=== PATIENT | male | born 1985 | race Caucasian/White ===

== ENCOUNTER 2023-08-13 21:03 | Observation (INO) ==
[2023-08-13] MEDS ORDERED: DECADRON IM ONE (21:11)
[2023-08-13] MEDS ORDERED: EPINEPHRINE 1 MG/ML AMP IM STA (21:11)
[2023-08-13] MEDS ORDERED: DILAUDID 1 MG/ML SYRINGE IM STA (21:20)
[2023-08-13] MEDS ORDERED: BENADRYL IM STA (21:20)
[2023-08-13] MEDS ORDERED: CLARITIN PO STA (21:23)
--- NOTE | 2023-08-13 21:27 | ED.PDOC ---
General ED Provider: Dr. TERRIE SKY Chief Complaint: Rash Stated Complaint: Patient is a a 38 year old male who comes to the ER with a one week history of Splash/chemical exposure Machine cleaning solution he does not know the name) on the lower part of his body that has been getting worse. He states that he was taken away from the chemical at work but did not seek care. Today the swelling got worse and has been taking Ibuprofen for the pain. Time Seen by Provider: 08/13/23 21:20 Information Source: Patient Nursing and Triage Documentation Reviewed and Agree: Yes Skin Complaint Exam Burn Injury Complaint/Exam Onset/Duration: 1 week ago Length Of Exposure: hours to days Initial Severity: Mild Current Severity: Severe Location: Trunk, RUE, LUE, RLE and LLE Character: Chemical Alleviating: Reports Cool soaks (taking a shower in the [place] area of the hospital ) Associated Signs and Symptoms: Denies Short of air, Cough, Chest pain, Vision abnormality, LOC/Duration or Additional trauma Skin: Wet Singed Facial Hair: No Singed Nasal Hair: No Stridor Present: No Respiratory Distress Present: No Circumferential Involvement to Trunk: No Circumferential Involvement to Extremity: No Entrance Wound Present: No Exit Wound Present: No Burn Location (Adult): Abdomen (Front), Left Arm (Front), Left Arm (Back), Right Arm (Front), Groin, Left Leg (Front) and Right Leg (Front) Estimated Burned Body Surface Area: 41.5 Differential Diagnoses: Chemical Burn (Petroleum Bicarbonate (Hysol MB 50)) Review of Systems Review Of Systems Constitutional: Reports No symptoms Ears, Nose, Mouth, Throat: Reports No symptoms Respiratory: Reports No symptoms GI: Reports No symptoms : Reports No symptoms Skin: Reports Other (partial thickness burn on the upper extremities lower abdomen and lower body. With ) Neurological: Reports Anxiety All Other Systems: Reviewed and Negative [facility] Medical History (Updated 08/14/23 @ 02:05 by SERGO RAMOS RN) No known health problems Z78.9 - Other specified health status (ICD-10) Family History (Updated 08/14/23 @ 02:03 by SERGO RAMOS RN) PATERNAL GRANDFATHER Stroke Social History (Updated 08/14/23 @ 02:02 by SERGO RAMOS RN) Smoking and tobacco status: Current every day smoker Tobacco type: cigars Quit status: not considering quitting Alcohol intake: current Counseling given: No Substance use type: does not use Counseling given: No Adopted: No Caregiver/support person: No Foster care: No Housing: homeless Lives independently: Yes Daycare: no daycare Highest education level completed: Associate degree: occupational, technical, vocational program Financial difficulty paying for basics: not very hard service: No Current occupational status: employed Current occupation: [employer] Current occupational exposures/hazards: Yes Seatbelt use: sometimes Current diet type/program: regular Caffeine: Yes What type of physical activity do you participate in?: none Surgical History (Updated 08/14/23 @ 02:05 by SERGO RAMOS RN) No history of previous surgery Physical Exam Physical Exam Appearance: Reports Ill-appearing Ill-appearing: Mild Pain Distress: Mild Eyes: Reports ANTHONY, EOMI and Conjunctiva clear ENT: Reports Nose normal and Oropharynx normal Neck: Supple Respiratory: Reports Airway patent; Denies Rhonchi, Wheezes or Retractions Cardiovascular: Reports Pulses normal, No rub and Tachycardia GI/: Reports Soft and Nontender Musculoskeletal: Reports Edema (3+ pm on the upper extremities with weeping due to edema ) Skin: Reports Other (Burn) Neurological: Reports Motor intact, Alert and Oriented Psychiatric: Reports Anxious Physician Notification Case Discussed Physician Notified: Aliza Duffy Time of Notification: 23:04 (Regarding need to admit for observation. ) Critical Care Note Critical Care Note Total Critical Care Time (mins): 30 Comments: Patient advised on need to get blood drawn for Labs but he declined after a couple of failed attempts. Poison controlled called and advised treat like a regular burn after cleaning with soap and water. Course Course 08/14/23 00:01 08/14/23 00:01 Orders, Labs, Meds: Lab Review 08/13/23 08/13/23 08/14/23 23:11 23:31 00:01 WBC 19.61 H RBC 4.80 Hgb 16.2 Hct 48.2 MCV 100.4 H MCH 33.8 H MCHC 33.6 RDW Coeff of Montse 12.4 Plt Count 347 Neutrophils % (Manual) 81.0 H Lymphocytes % (Manual) 5.0 L Monocytes % (Manual) 7.0 Eosinophils % (Manual) 7.0 H Anisocytosis Not present Sodium 131.8 L Potassium 3.75 Chloride 103.3 Carbon Dioxide 22.5 Anion Gap 9.75 BUN 15.1 Creatinine 1.32 H Estimated GFR (MDRD) 60.00 BUN/Creatinine Ratio 11.43 Glucose 146.1 H Calcium 7.85 L Total Bilirubin 0.49 AST 29.7 ALT 22.9 Alkaline Phosphatase 64.9 Total Protein 6.05 L Albumin 3.17 L Globulin 2.88 Albumin/Globulin Ratio 1.10 Urine Opiates Screen Positive H Ur Oxycodone Screen Negative Urine Methadone Screen Negative Ur Barbiturates Screen Negative U Tricyclic Antidepress Negative Ur Phencyclidine Scrn Negative Ur Amphetamine Screen Negative U Methamphetamines Scrn Negative U Benzodiazepines Scrn Negative Urine Cocaine Screen Negative U Cannabinoids Screen Negative Plasma/Serum Alcohol < 10.0 SARS CoV-2 RNA Rapid ISRAEL Negative Orders Category Date Time Status ADMIT OBSERVATION [PLACE PATIENT OBSERVATION] .TO ADMISSION 08/13/23 23:25 Active MEDSURG (NON-MONITORED BED) ACTIVITY .Up ad Sherin CARE 08/13/23 23:25 Active INTAKE & OUTPUT Q8HR CARE 08/13/23 23:26 Active IP: INSERT SALINE LOCK ONCE CARE 08/13/23 23:26 Active VITAL SIGNS Q8HR CARE 08/13/23 23:26 Active VTE PREVENTION .JULIA On AM/Off PM CARE 08/13/23 23:25 Active REGULAR DIET DIETARY 08/14/23 Breakfast Ordered ALCOHOL LEVEL [BLOOD ALCOHOL] Stat LAB 08/13/23 23:31 Completed CBC W/ AUTO DIFF DAILY@0600 LAB 08/14/23 06:00 Ordered CBC W/ AUTO DIFF DAILY@0600 LAB 08/15/23 06:00 Ordered COMPREHENSIVE METABOLIC PANEL DAILY@0600 LAB 08/14/23 06:00 Ordered COMPREHENSIVE METABOLIC PANEL DAILY@0600 LAB 08/15/23 06:00 Ordered SARS COV-2 RNA RAPID ISRAEL Stat LAB 08/13/23 23:11 Completed URINE DRUG SCREEN (RAPID FOR ED) [DRUG SCREEN, URINE, LAB 08/13/23 23:11 Completed RAPID] Stat Cephalexin [Keflex] Meds 08/13/23 23:25 Discontinued 500 mg PO ONCE STA Cephalexin [Keflex] Meds 08/14/23 05:00 Active 500 mg PO Q8HR Dexamethasone Sod Phosphate [Decadron] Meds 08/13/23 21:11 Discontinued 10 mg IM ONCE ONE Diphenhydramine HCl [Benadryl] Meds 08/13/23 23:25 Active 25 mg PO Q6H PRN Diphenhydramine Inj [Benadryl] Meds 08/13/23 21:20 Discontinued 25 mg IM ONCE STA Epinephrine Amp [Epinephrine 1 mg/ml Amp] Meds 08/13/23 21:11 Discontinued 0.4 mg IM ONCE STA Hydromorphone HCl [Dilaudid 1 mg/ml Syringe] Meds 08/13/23 21:20 Discontinued 1 mg IM ONCE STA Loratadine [Claritin] Meds 08/13/23 21:23 Discontinued 10 mg PO ONCE STA Mupirocin [Bactroban] Meds 08/14/23 09:00 Active 1 applic TP BID Prednisone Meds 08/14/23 09:00 Active 40 mg PO DAILY RESUSCITATION STATUS Routine OTHERS 08/13/23 23:25 Ordered Medications Generic Name Dose Route Start Last Admin Trade Name Rupal PRN Reason Stop Dose Admin Hydrocodone Bitart/Acetaminophen 1 tab 08/14/23 00:19 Hydrocodone Bit/Acetaminophen 5/325 Mg Tablet PO Q6HR PRN Pain Cephalexin 500 mg 08/14/23 05:00 Cephalexin 500 Mg Capsule PO 08/17/23 04:59 Q8HR ROGER Diphenhydramine HCl 25 mg 08/13/23 23:25 Diphenhydramine Hcl 25 Mg Capsule PO Q6H PRN Allergy Symptoms Mupirocin 1 applic 08/14/23 09:00 Mupirocin 22 Gm Oint TP 08/17/23 08:59 BID ROGER Prednisone 40 mg 08/14/23 09:00 Prednisone 20 Mg Tablet PO DAILY ROGER Discontinued Medications Generic Name Dose Route Start Last Admin Trade Name Rupal PRN Reason Stop Dose Admin Cephalexin 500 mg 08/13/23 23:25 08/13/23 23:49 Cephalexin 500 Mg Capsule PO 08/13/23 23:26 500 mg ONCE STA Administration Dexamethasone Sodium Phosphate 10 mg 08/13/23 21:11 08/13/23 21:36 Dexamethasone Sod Phos 10 Mg/Ml Inj IM 08/13/23 21:12 10 mg ONCE ONE Administration Diphenhydramine HCl 25 mg 08/13/23 21:20 08/13/23 21:32 Diphenhydramine Inj 50 Mg/Ml Vial IM 08/13/23 21:21 25 mg ONCE STA Administration Epinephrine HCl 0.4 mg 08/13/23 21:11 08/13/23 21:33 Epinephrine 1 Mg/1 Ml Amp IM 08/13/23 21:12 0.4 mg ONCE STA Administration Hydromorphone HCl 1 mg 08/13/23 21:20 08/13/23 21:34 Hydromorphone Hcl 1 Mg/Ml Syringe IM 08/13/23 21:21 1 mg ONCE STA Administration Loratadine 10 mg 08/13/23 21:23 08/13/23 21:32 Loratadine 10 Mg Tablet PO 08/13/23 21:24 10 mg ONCE STA Administration Vital Signs: Temp Pulse Resp BP Pulse Ox 08/13/23 21:08 98.0 F 134 H 20 122/82 98 Discharge Plan Discharge Patient Disposition: PLACED OBSERVATION Discharge Problem: Chemical burn Chemical burn of abdominal wall Qualifiers: Encounter type: initial encounter Corrosion degree: first degree Qualified Code(s): T21.52XA - Corrosion of first degree of abdominal wall, initial encounter Burn of upper limb, second degree Qualifiers: Encounter type: initial encounter Upper extremity location: forearm Laterality: unspecified laterality Qualified Code(s): T22.219A - Burn of second degree of unspecified forearm, initial encounter Chemical burn of left thigh Qualifiers: Encounter type: initial encounter Corrosion degree: first degree Qualified Code(s): T24.512A - Corrosion of first degree of left thigh, initial encounter Chemical burn of right thigh Qualifiers: Encounter type: initial encounter Corrosion degree: second degree Qualified Code(s): T24.611A - Corrosion of second degree of right thigh, initial encounter Did you review [place] TRAVEL PT for ALL controlled substances?: Not Applicable ED Provider: TERRIE SKY Condition: Fair Physician Progress Note: []
[2023-08-13] MEDS ORDERED: BENADRYL PO PRN (23:25)
[2023-08-13] MEDS ORDERED: KEFLEX PO STA (23:25)
[2023-08-13 23:35] LABS: SARS COV-2 RNA RAPID NAAT NEGATIVE (NEGATIVE)
[2023-08-13 23:39] LABS: AMPHETAMINE SCREEN,URINE NEGATIVE (NEGATIVE); BARBITURATE SCREEN,URINE NEGATIVE (NEGATIVE); BENZODIAZEPINES SCREEN,URINE NEGATIVE (NEGATIVE); CANNABINOID SCREEN,URINE NEGATIVE (NEGATIVE); COCAIN SCREEN,URINE NEGATIVE (NEGATIVE); METHADONE URINE SCREEN NEGATIVE (NEGATIVE); METHAMPHETAMINES SCREEN,URINE NEGATIVE (NEGATIVE); OPIATE SCREEN,URINE POSITIVE (NEGATIVE); OXYCODONE URINE SCREEN NEGATIVE (NEGATIVE); PHENCYCLIDINE SCREEN,URINE NEGATIVE (NEGATIVE); TRICYCLIC ANTIDEPRESSANTS URIN NEGATIVE (NEGATIVE)
[2023-08-14] MEDS ORDERED: NORCO 5-325 PO PRN (00:19)
[2023-08-14 01:05] LABS: HEMATOCRIT 48.2 % (42.0-52.0); HEMOGLOBIN 16.2 g/dl (14.0-18.0); MEAN CORPUSCULAR HEMOGLOBIN 33.8 pg (27.0-31.0); MEAN CORPUSCULAR HGB CONC 33.6 (31.8-35.4); MEAN CORPUSCULAR VOLUME 100.4 fl (80.0-94.0); PLATELET COUNT 347 10^3/uL (140-440); RDW COEFFICIENT OF VARIATION 12.4 % (11.6-14.8); WHITE BLOOD COUNT 19.61 K/ul (4.2-10.2)
[2023-08-14 01:11] LABS: ALANINE AMINOTRANSFERASE 22.9 U/L (0-50); ALBUMIN 3.17 g/dL (3.5-5.0); ALKALINE PHOSPHATASE 64.9 U/L (38-126); ASPARTATE AMINO TRANSFERASE 29.7 U/L (17-59); BILIRUBIN,TOTAL 0.49 mg/dL (0.2-1.3); BLOOD UREA NITROGEN 15.1 mg/dL (9-20); CALCIUM 7.85 mg/dL (8.4-10.2); CARBON DIOXIDE 22.5 mmol/L (22-30.0); CHLORIDE 103.3 mmol/L (98-107); CREATININE 1.32 mg/dL (0.60-1.10); GLUCOSE 146.1 mg/dL (74-106); POTASSIUM 3.75 mmol/L (3.5-5.1); SODIUM 131.8 mmol/L (134.5-145); TOTAL PROTEIN 6.05 g/dL (6.3-8.2)
[2023-08-14 01:14] LABS: ANISOCYTOSIS NOT PRESENT (NOT PRESENT)
[2023-08-14 02:30] VITALS: BMI 29.5
[2023-08-14] MEDS: KEFLEX PO SCH ×2 (05:03→13:13)
[2023-08-14 05:04] VITALS: BP 132/77; PULSE 68; RESP 19; TEMP 98.1
[2023-08-14 05:57] LABS: BASOPHILS % (AUTO) 0.3 % (0.0-3.0); EOSINOPHILS # (AUTO) 0.1 K/ul (0.0-0.7); HEMATOCRIT 46.4 % (42.0-52.0); HEMOGLOBIN 15.6 g/dl (14.0-18.0); IMMATURE GRANULOCYTE # (AUTO) 0.1 (0.0-1.0); IMMATURE GRANULOCYTE % (AUTO) 1.1 % (0.0-5.0); LYMPHOCYTES # (AUTO) 1.4 K/uL (0.60-3.4); LYMPHOCYTES % (AUTO) 11.9 (10.0-50.0); MEAN CORPUSCULAR HEMOGLOBIN 34.1 pg (27.0-31.0); MEAN CORPUSCULAR HGB CONC 33.6 (31.8-35.4); MEAN CORPUSCULAR VOLUME 101.3 fl (80.0-94.0); MONOCYTES # (AUTO) 0.3 K/uL (0.4-2.0); MONOCYTES % (AUTO) 2.6 (0-10); NEUTROPHILS # (AUTO) 9.6 K/ul (2.0-6.9); NEUTROPHILS % (AUTO) 83.1 % (42.2-75.2); PLATELET COUNT 337 10^3/uL (140-440); RDW COEFFICIENT OF VARIATION 12.3 % (11.6-14.8); RED BLOOD COUNT 4.58 10^6/ul (4.70-6.10); WHITE BLOOD COUNT 11.55 K/ul (4.2-10.2)
[2023-08-14 06:10] LABS: ALANINE AMINOTRANSFERASE 23.3 U/L (0-50); ALBUMIN 3.2 g/dL (3.5-5.0); ALKALINE PHOSPHATASE 63.6 U/L (38-126); ASPARTATE AMINO TRANSFERASE 27.1 U/L (17-59); BILIRUBIN,TOTAL 0.44 mg/dL (0.2-1.3); BLOOD UREA NITROGEN 13.5 mg/dL (9-20); CALCIUM 8.16 mg/dL (8.4-10.2); CARBON DIOXIDE 24.4 mmol/L (22-30.0); CHLORIDE 103.2 mmol/L (98-107); GLUCOSE 150.1 mg/dL (74-106); POTASSIUM 4.4 mmol/L (3.5-5.1); SODIUM 133.6 mmol/L (134.5-145); TOTAL PROTEIN 6.01 g/dL (6.3-8.2)
[2023-08-14] MEDS ORDERED: PREDNISONE PO SCH (09:00)
[2023-08-14] MEDS ORDERED: BACTROBAN TP SCH (09:00)
--- NOTE | 2023-08-14 10:36 | PCM.SS ---
Provider Provider: GERARDO MCMULLEN [facility]-C, [facility] Ad[facility] Date Admission Date: 08/13/23 Discharge Date Discharge Date: 08/14/23 Chief Complaint Reason For Visit: LI History of Present Illness History of Present Illness: Patient is a 38 year old male who presented to ER for a rash. Patient states on 08/03 he was at work at "[employer]" in [facility]. He states he exposed to a "coolant" during his job that irritated his skin. He states he was not aware of protective clothing to wear prior to performing this task. He notified his pbx manager and was moved to another task. He states this rash has continued to worsen over the past week. He now has swelling of his upper extremities and they are weeping. He has limited resources and lives in his van. He has been wearing the same clothing. Denies fever. Denies open sores. Has continued to work. In the ER [employer] was contacted for information on the chemical used. Poison control was contacted who recommended wash areas with soap and water until clean. Then treat as a regular burn. Mupirocen was applied and keflex given. Pt admitted to [facility]. This morning patient's edema has improved. He has had no pain. He was educated on how to care for this burn. Red flags on when to return. He was given clean clothing and other hygiene products. He has a f/u with occupation health provider for his company on Thursday. [facility] Medical History No known health problems Z78.9 - Other specified health status (ICD-10) Surgical History No history of previous surgery Family History PATERNAL GRANDFATHER Stroke Social History Smoking and tobacco status: Current every day smoker Tobacco type: cigars Quit status: not considering quitting Alcohol intake: current Counseling given: No Substance use type: does not use Counseling given: No Adopted: No Caregiver/support person: No Foster care: No Housing: homeless Lives independently: Yes Daycare: no daycare Highest education level completed: Associate degree: occupational, technical, vocational program Financial difficulty paying for basics: not very hard service: No Current occupational status: employed 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 Current occupational exposures/hazards: Yes Seatbelt use: sometimes Current diet type/program: regular Caffeine: Yes What type of physical activity do you participate in?: none Medications Mecications: Medications at Discharge (Home Meds & RX) 1 [No Reported Medications] 08/13/23 Allergies Allergies Allergy/AdvReac Type Severity Reaction Status Date / Time No Known Allergies Allergy Unverified 08/13/23 21:26 Review of Systems Constitutional: Denies Fever, Fatigue or Weakness Head: Reports Normocephalic and Atraumatic Throat: Denies Sore Throat, Difficulty Swallowing or Pain Cardiovascular: Denies Chest pain or Chest Pressure Respiratory: Denies Cough or Shortness of air Gastrointestinal: Denies Nausea, Vomiting, Diarrhea or Abdominal pain Genitourinary: Denies Dysuria or Hematuria Dermatologic: Reports Rashes, Skin Changes and Other (+RASH/BURN TO ARMS AND STOMACH) Neurological: Denies Headache, Weakness or Problems with walking Physical Examination Appearance: Positive No Apparent Distress, Alert and Oriented x3 and Other (+DISHEVELED ) Head: Positive Normocephalic and Atraumatic Neck: Positive Supple and Trachea Midline Heart: Positive RRR Respiratory: Positive Airway patent, Breath Sounds Clear, Bilaterally, Breath Sounds Equal and Respirations Nonlabored; Negative Rhonchi, Wheezes or Retractions GI/: Positive Soft, Nontender, Bowel sounds normal and No Distention Extremities: Positive Edema and Pedal Pulses Palpable Bilaterally Neurological: Positive Cranial nerves intact, Alert and Oriented Psychiatric: Positive Normal Judgement, Normal Insight, Affect Appropriate and Mood Appropriate Additional Findings: SKIN: Patient has first degree confluent li to anterior stomach area (9%) that extends towards groin area but does not involve genitals. Mild isolated areas of burn on the genitals (evaluated by male nurse instead of this female provider per patient request). Left arm has extensive anterior and posterior involvement of 1st degree burn with some more severe areas of 2nd degree burn near his elbow (9%). No blisters noted. Swelling noted to lyndsey upper ext. Right forearm has circumferential area of burn involving distal forearm, healing, 1st degree (4.5%). He has some isolated areas of 1-2nd degree li due to splatter from the fluid of his lower extremities, but no confluent areas of burn. Total surface area estimated to be 31.5%. No desquamation of the skin. No signs of compartment syndrome. All areas are blanchable. No mucosal involvement. No respiratory involvement. Pulses and sensation intact. Vital Signs (Last 4 Hours) Vital Signs Last 4 Hours: Vital Signs: Last 4 Hours 08/14/23 07:00 08/14/23 08:00 08/14/23 08:00 Oxygen Delivery Method Room Air Room Air Room Air 08/14/23 09:00 08/14/23 09:53 Oxygen Delivery Method Room Air Room Air Labs This Visit Labs This Visit: Labs This Visit 08/13/23 08/13/23 08/14/23 23:11 23:31 00:01 WBC 19.61 H RBC 4.80 Hgb 16.2 Hct 48.2 MCV 100.4 H MCH 33.8 H MCHC 33.6 RDW Coeff of Montse 12.4 Plt Count 347 Immature Gran % (Auto) Neut % (Auto) Lymph % (Auto) Harvey % (Auto) Eos % (Auto) Baso % (Auto) Neut # (Auto) Lymph # (Auto) Harvey # (Auto) Eos # (Auto) Baso # (Auto) Immature Gran # (Auto) Neutrophils % (Manual) 81.0 H Lymphocytes % (Manual) 5.0 L Monocytes % (Manual) 7.0 Eosinophils % (Manual) 7.0 H Anisocytosis Not present Sodium 131.8 L Potassium 3.75 Chloride 103.3 Carbon Dioxide 22.5 Anion Gap 9.75 BUN 15.1 Creatinine 1.32 H Estimated GFR (MDRD) 60.00 BUN/Creatinine Ratio 11.43 Glucose 146.1 H Calcium 7.85 L Total Bilirubin 0.49 AST 29.7 ALT 22.9 Alkaline Phosphatase 64.9 Total Protein 6.05 L Albumin 3.17 L Globulin 2.88 Albumin/Globulin Ratio 1.10 Urine Opiates Screen Positive H Ur Oxycodone Screen Negative Urine Methadone Screen Negative Ur Barbiturates Screen Negative U Tricyclic Antidepress Negative Ur Phencyclidine Scrn Negative Ur Amphetamine Screen Negative U Methamphetamines Scrn Negative U Benzodiazepines Scrn Negative Urine Cocaine Screen Negative U Cannabinoids Screen Negative Plasma/Serum Alcohol < 10.0 SARS CoV-2 RNA Rapid ISRAEL Negative 08/14/23 05:42 WBC 11.55 H D RBC 4.58 L Hgb 15.6 Hct 46.4 MCV 101.3 H MCH 34.1 H MCHC 33.6 RDW Coeff of Montse 12.3 Plt Count 337 Immature Gran % (Auto) 1.1 Neut % (Auto) 83.1 H Lymph % (Auto) 11.9 Harvey % (Auto) 2.6 Eos % (Auto) 1.0 Baso % (Auto) 0.3 Neut # (Auto) 9.6 H Lymph # (Auto) 1.4 Harvey # (Auto) 0.3 L Eos # (Auto) 0.1 Baso # (Auto) 0.0 Immature Gran # (Auto) 0.1 Neutrophils % (Manual) Lymphocytes % (Manual) Monocytes % (Manual) Eosinophils % (Manual) Anisocytosis Sodium 133.6 L Potassium 4.40 Chloride 103.2 Carbon Dioxide 24.4 Anion Gap 10.40 BUN 13.5 Creatinine 1.00 Estimated GFR (MDRD) 83.00 BUN/Creatinine Ratio 13.50 Glucose 150.1 H Calcium 8.16 L Total Bilirubin 0.44 AST 27.1 ALT 23.3 Alkaline Phosphatase 63.6 Total Protein 6.01 L Albumin 3.20 L Globulin 2.81 Albumin/Globulin Ratio 1.13 Urine Opiates Screen Ur Oxycodone Screen Urine Methadone Screen Ur Barbiturates Screen U Tricyclic Antidepress Ur Phencyclidine Scrn Ur Amphetamine Screen U Methamphetamines Scrn U Benzodiazepines Scrn Urine Cocaine Screen U Cannabinoids Screen Plasma/Serum Alcohol SARS CoV-2 RNA Rapid ISRAEL Imaging Imaging: None Review Review Statement: I have independently reviewed and interpreted the labs/EKGs/imaging that were ordered by the ER provider. I have reviewed all outside records that are available currently in our EMR including imaging/notes/labs from previous visits. Plan Reccomendations/Plan: 1. Work related chemical burn due to hydrocarbon burn - Per poison control, wash with soap and water until clean then treat as regular burn. Will continue abx ointment and will add keflex to cover for secondary infection. Updated on tdap. 2. Leukocytosis - Improving. Likely due to recent burn. Patient was provided with hygiene supplies. He was also given mupirocen tube to take home, script also sent into pharmacy. Keflex also prescribed. He has an apt with occupational health provider on Thursday. Advised to take today off and see provider on Thursday for further instructions depending on how his burn is healing. He will need to avoid the coolant substance in the future or wear appropriate protective equipment in the future. Discussed red flags on when to return. Pt agrees to plan of care. Will discharge. Discharge diagnosis: 1. Work related chemical burn due to hydrocarbon burn, improved 2. Leukocytosis, improved Additional Planning: Case discussed with ED Physician, Dr. Santiago. DVT Prophylaxis: Ambulation Advanced Care Plannin minutes spent discussing advance care planning. FULL CODE Admit to: Obs Discussed Plan of Care with Dr. Jessee Liang. Review With Patient Reviewed with Patient and Family: Patient and family have been counseled on condition and care plan and have no immediate questions. I have personally discussed and reviewed the patient's visit/current labs/imaging/decision making with Dr. Jessee Liang, my supervising attending. Total number of minutes spent with patient [85 ] min. More than 50% of the time spent with this patient was devoted to counseling and coordination of care. Time of Admission:08/13/235 Time of Discharge: 08/14/23 0945 Discharge Plan Discharge Discharge Orders: Discharge Patient (ONCE); Ordered 08/14/23 Ordered By: GERARDO MCMULLEN Activity Restrictions/Additional Instructions: You have been referred to [facility] occupational medicine. You have an appointment scheduled with them on Thursday, August 17 at 11:30am. Their phone number is [phone], and their address is [address] [place] [address]. DISCHARGE TO HOME F/U WITH OCCUPATIONAL HEALTH FINISH [facility]: PETER RAMOS APPLY OINTMENT TWICE A DAY WASH GENTLY WITH PLAIN SOAP AND WATER DAILY RETURN WITH WORSENING SYMPTOMS Instructions: Chemical Skin Burn (GEN) Care Plan Goals: Problem: Impaired Skin Integrity Goal: Improve skin integrity Instructions: Ambulate or up to chair as tolerated Increase oral intake if indicated Diet consult if indicated Keep bedding and clothing warm/dry Apply aloe vesta cream as needed Patient Disposition: HOME SELF-CARE Prescriptions: New cephalexin 500 mg Capsule 500 mg PO QID 7 Days Qty: 28 0RF mupirocin 2 % Ointment 1 applic topical BID Qty: 60 0RF Did you review [place] MOTORCYCLE DELIVERY DRIVER for ALL controlled substances?: Not Applicable Discussed opioids are addictive and Narcan is available by prescription or from pharmacy.: No Condition: Stable
[2023-08-14] MEDS ORDERED: BOOSTRIX IM ONE (12:53)
== END 2023-08-14 13:36 | disposition home or self-care (01) ==
LOC: MEDSURG B 21:03 → ED 21:03 → MEDSURG B 08-14 01:49
PROVIDERS: ADMIT Hospitalist; ATTEND Physician Assistant
DX: Z20.822 Contact with and (suspected) exposure to COVID-19; Y99.0 Civilian activity done for income or pay; T53.7X1 Toxic effect of other halogen derivatives of aromatic hydrocarbons, accidental (unintentional); Z59.00 Homelessness unspecified; T24.611A Corrosion of second degree of right thigh, initial encounter; T31.40 Burns involving 40-49% of body surface with 0% to 9% third degree burns; T21.52XA Corrosion of first degree of abdominal wall, initial encounter; T24.512A Corrosion of first degree of left thigh, initial encounter; F17.210 Nicotine dependence, cigarettes, uncomplicated; T22.219A Burn of second degree of unspecified forearm, initial encounter; D72.829 Elevated white blood cell count, unspecified